=== PATIENT | female | born 1995 | race Two or more races ===

== ENCOUNTER 2017-08-25 17:07 | Emergency (ER) | payer SELFPAY ==
[~2017-08-25] VITALS: Ht 162.6 cm; Wt 84.6 kg
[~2017-08-25 17:07] MED LIST: FLEXERIL5 MG PO; MOTRIN800 MG PO; NAPROSYN500 MG PO; NAPROXEN500 MG PO; REGLAN10 MG PO; VALIUM5 MG PO; ZOFRAN ODT4 MG PO; ZOFRAN4 MG PO
[2017-08-25 18:16] LABS: HEMATOCRIT 42.8 % (36.0-46.0); HEMOGLOBIN 14.4 G/DL (11.9-15.5); MCH 29.6 PG (29.0-34.0); MCHC 33.6 G/DL (30.0-36.0); MCV 88.1 FL (83-99); PLATELET COUNT 419 K/uL (156-360); RBC DIS.WIDTH-CV 12.4 % (11.8-14.6); RED BLOOD COUNT 4.86 M/uL (3.80-5.20)
[2017-08-25 18:30] LABS: CHLORIDE 108 mEq/L (99-109); POTASSIUM 3.8 mEq/L (3.7-5.4); SODIUM 142 mEq/L (136-147)
[2017-08-25 18:32] LABS: GLUCOSE 103 mg/dL (70-99)
[2017-08-25 18:36] LABS: CREATININE 0.8 mg/dL (0.6-1.3); GFR ESTIMATE (CALCULATED) > 59 mL/min/; UREA NITROGEN (BUN) 12 mg/dL (9-23)
[2017-08-25 19:32] LABS: QUANTITATIVE HCG < 4.0 MIU/ML
[2017-08-25 20:23] LABS: ALBUMIN 4.3 g/dL (3.2-4.8)
[2017-08-25 20:26] LABS: TOTAL PROTEIN 7.8 g/dL (6.4-8.3)
[2017-08-25 20:27] LABS: TOTAL BILIRUBIN 0.4 mg/dL (0.0-1.0)
[2017-08-25 20:28] LABS: ALKALINE PHOSPHATASE 121 IU/L (3-129)
[2017-08-25 20:31] LABS: AST (GOT) 23 IU/L (2-34); DIRECT BILIRUBIN 0.1 mg/dL (0.0-0.3)
[2017-08-25 20:32] LABS: ALT (GPT) 19 IU/L (3-49); LIPASE 18 U/L (1.0-51.0)
[2017-08-25 20:46] LABS: APPEARANCE SL.HAZY ((CLEAR)); BILIRUBIN NEGATIVE; BLOOD SMALL; COLOR YELLOW ((YELLOW)); GLUCOSE (STRIP) NEGATIVE; KETONES NEGATIVE; LEUKOCYTES TRACE; NITRITE POSITIVE; PROTEIN (STRIP) NEGATIVE; SPECIFIC GRAVITY 1.024 (1.000-1.030); UROBILINOGEN 0.2 MG/DL (0.2-1.0)
[2017-08-25 20:59] LABS: BACTERIA RARE /HPF; EPITHELIAL CELLS 1+ /HPF; MUCUS 2+ /LPF; RED BLOOD CELLS 0-5 /HPF (0-5); UCUL ADDED? YES
[2017-08-25] MEDS ORDERED: MACROBID100 MG PO (21:09)
[2017-08-25 22:35] VITALS: BP 133/84
== END 2017-08-25 21:37 | disposition home or self-care (01) ==
LOC: EME 17:07
DX: N39.0 Urinary tract infection, site not specified (principal)
CPT/HCPCS: 80048; 80076; 81003; 83690; 84702; 85027; 87077; 87086; 87186; 87502; 99281; 99285

== ENCOUNTER 2017-10-18 19:14 | Emergency (ER) | payer SELFPAY ==
[~2017-10-18] VITALS: Ht 162.6 cm; Wt 86.5 kg
[~2017-10-18 19:14] MED LIST changes: +MACROBID100 MG PO
[2017-10-18] MEDS ORDERED: MOTRIN600 MG PO (23:19)
[2017-10-18 23:30] VITALS: BP 112/89
== END 2017-10-18 23:31 | disposition home or self-care (01) ==
LOC: EME 19:14
DX: S30.0XXA Contusion of lower back and pelvis, initial encounter (principal); W01.0XXA Fall on same level from slipping, tripping and stumbling without subsequent striking against object, initial encounter; Y93.89 Activity, other specified
CPT/HCPCS: 72220; 99281; 99283

== ENCOUNTER 2017-11-19 10:14 | Emergency (ER) | payer SELFPAY ==
[~2017-11-19] VITALS: Ht 162.6 cm; Wt 86.1 kg
[~2017-11-19 10:14] MED LIST changes: +MOTRIN600 MG PO
[2017-11-19] MEDS ORDERED: PREDNISONE20 MG PO (11:53)
[2017-11-19 12:05] VITALS: BP 107/80
== END 2017-11-19 12:08 | disposition home or self-care (01) ==
LOC: EME 10:14
DX: J06.9 Acute upper respiratory infection, unspecified (principal); Z87.891 Personal history of nicotine dependence
CPT/HCPCS: 87502; 87651 90; 99281; 99284

== ENCOUNTER 2018-01-02 12:21 | Emergency (ER) | payer SELFPAY ==
[~2018-01-02] VITALS: Ht 162.6 cm; Wt 86.2 kg
[~2018-01-02 12:21] MED LIST changes: +PREDNISONE20 MG PO
[2018-01-02 13:42] LABS: BASOPHIL (%) 0.6 % (0-1); BASOPHIL COUNT 0.1 K/uL (0-0.1); EOSINOPHIL (%) 1.5 % (0-5); EOSINOPHIL COUNT 0.1 K/uL (0-0.3); HEMATOCRIT 36.9 % (36.0-46.0); HEMOGLOBIN 12.8 G/DL (11.9-15.5); IMMATURE GRANULOCYTE (%) 0.4 % (0.0-0.7); LYMPHOCYTE (%) 37.5 % (15-42); LYMPHOCYTE COUNT 3.2 K/uL (1.0-2.8); MCHC 34.7 G/DL (30.0-36.0); MCV 86.4 FL (83-99); MONOCYTE (%) 5.2 % (3-12); MONOCYTE COUNT 0.4 K/uL (0-0.8); NEUTROPHIL (%) 54.8 % (45-76); NEUTROPHIL COUNT 4.6 K/uL (1.8-6.4); PLATELET COUNT 407 K/uL (156-360); RBC DIS.WIDTH-CV 13.7 % (11.8-14.6); RBC DIS.WIDTH-SD 42.6 % (39-53); RED BLOOD COUNT 4.27 M/uL (3.80-5.20); WHITE BLOOD COUNT 8.4 K/uL (4.1-10.2)
[2018-01-02 13:52] LABS: ALBUMIN 4.1 g/dL (3.2-4.8); CHLORIDE 108 mEq/L (99-109); POTASSIUM 3.7 mEq/L (3.7-5.4); SODIUM 142 mEq/L (136-147)
[2018-01-02 13:53] LABS: MAGNESIUM 2.3 mg/dL (1.3-2.7)
[2018-01-02 13:55] LABS: GLUCOSE 106 mg/dL (70-99); TOTAL PROTEIN 7.3 g/dL (6.4-8.3)
[2018-01-02 13:57] LABS: TOTAL BILIRUBIN 0.5 mg/dL (0.0-1.0)
[2018-01-02 13:58] LABS: ALKALINE PHOSPHATASE 112 IU/L (3-129)
[2018-01-02 13:59] LABS: CREATININE 0.8 mg/dL (0.6-1.3); GFR ESTIMATE (CALCULATED) > 59 mL/min/
[2018-01-02 14:00] LABS: AST (GOT) 16 IU/L (2-34); UREA NITROGEN (BUN) 10 mg/dL (9-23)
[2018-01-02 14:01] LABS: ALT (GPT) 14 IU/L (3-49)
[2018-01-02 14:08] LABS: QUANTITATIVE HCG < 4.0 MIU/ML
[2018-01-02] MEDS ORDERED: MOTION SICKNESS25 M4 PO (14:54)
[2018-01-02 15:16] VITALS: BP 112/67
== END 2018-01-02 15:18 | disposition home or self-care (01) ==
LOC: EME 12:21
PROVIDERS: Emergency Medicine
DX: R42 Dizziness and giddiness (principal); R11.0 Nausea; Z87.891 Personal history of nicotine dependence
CPT/HCPCS: 71046; 80053; 83735; 84702; 85025; 93005; 99281; 99285; J7040